=== PATIENT | female | born 1945 | race Caucasian/White ===

== ENCOUNTER 2016-06-03 06:23 | Emergency (ER) | payer MEDICARE, OTHER ==
[2016-06-03 06:32] VITALS: BP 195/82
--- NOTE | 2016-06-03 07:00 | ERNOTE ---
Upper Extremity HPI - General Extremities Pain Location: shoulder: right - fell Time Seen by Provider: 06/03/16 06:55 Source: patient, family Exam Limitations: no limitations - Immun/Allergies/Home Medications Immunizations: IMMUNIZATION HX Immunizations Up to Date No History of Influenza Vaccine No Hx Pneumococcal Vaccination Yes Allergies/Adverse Reactions: Allergies Allergy/AdvReac Type Severity Reaction Status Date / Time No Known Allergies Allergy Verified 06/03/16 06:33 Home Medications: HOME MEDICATIONS Aspirin 325 mg PO DAILY 02/09/16 [Last Taken Unknown] Atorvastatin Calcium 80 mg PO DAILY 02/09/16 [Last Taken Unknown] Carvedilol [Coreg] 25 mg PO BID 02/09/16 [Last Taken Unknown] Ezetimibe [Zetia] 10 mg PO DAILY 02/09/16 [Last Taken Unknown] Glimepiride [Amaryl] 4 mg PO DAILY 02/09/16 [Last Taken Unknown] Pramipexole Di-HCl [Mirapex] 1.5 mg PO BID 02/09/16 [Last Taken Unknown] Losartan Potassium [Cozaar] 100 mg PO DAILY 06/03/16 [Last Taken Unknown] Multivitamins [Multivitamin Yaron] 1 cap PO DAILY 06/03/16 [Last Taken Unknown] - History of Present Illness Narrative: Pt lost her balance due to Parkinson's and fell on her right side. Non- specific pain in right arm Occurred: just prior to arrival Location of Incident: home Severity: moderate Method of Injury: Reports: fell Reason for Fall: Reports: lost balance Loss of Consciousness: Reports: no loss of consciousness Associated Symptoms: Denies: tingling, weakness Other Injuries: Reports: none Review of Systems - Review of Systems Constitutional: Absent: recent illness Cardiology: Absent: chest pain Neurological: Absent: dizziness/light-headedness, weakness, numbness, tingling - Patient's Past Medical History Patient History - Medical: Cataracts, Diabetes Type 2, Other - Parkinson's Patient History - Cardiac/Respiratory: CVA/Stroke, Hypertension, Myocardial Infarction, Other Patient History - Cancer: No Hx of Cancer Patient History - Surgical Procedures: Cataracts, Tubal Ligation, Other Patient History - Other: None - Family History Mother Family History - Medical: , No pertinent hx Family History - Cardiac/Respiratory: Coronary Heart Disease, Hypertension, TIA Father Family History - Medical: , No pertinent hx Family History - Cardiac/Respiratory: Coronary Heart Disease - Social History Living Situations: other Abuse History: No History of abuse Psych History: Hx of Anxiety Alcohol Use: none Drug Use: none - Immunizations Immunizations Up to Date: No Hx Pneumococcal Vaccination: Yes History of Influenza Vaccine: No Physical Exam - Physical Exam General Appearance: Present: wd/wn, alert, no apparent distress Neck: Present: normal inspection, nontender, supple Respiratory: Present: no respiratory distress, no accessory muscle use Back Exam: Present: normal inspection, normal range of motion, no vertebral tenderness Extremity Exam: Present: other - Tenderness to the right bicepital tendon. Absent: joint redness, joint swelling Neurological Exam: Present: alert, oriented, normal mood/affect Skin Exam: Present: normal color, warm/dry ED Progress - Vital Signs Vital Signs: Vital Signs 06/03/16 06:29 Pulse Rate 72 Respiratory 20 Rate Blood Pressure 195/82 O2 Sat by Pulse 96 Oximetry - X-Ray X-Ray #1 X-Ray: shoulder Interpretation: Interp. by me X-ray Comments: No fracture or dislocation - Progress/Reassessment Chief Complaint: Shoulder Injury/Pain Departure Clinical Impression: Right shoulder strain Qualifiers: Encounter type: initial encounter Qualified Code(s): S46.911A - Strain of unspecified muscle, fascia and tendon at shoulder and upper arm level, right arm , initial encounter - Departure Disposition: Home self-care Condition: Good Instructions: RICE for Routine Care of Injuries, [id number] Additional Instructions: You may use ibuprofen three times a day for 7-10 days. Follow up with your regular doctor if not improving Referrals: Keysha Baptiste MD [Primary Care Provider] -
--- OUTSIDE RECORDS SUMMARY | 2016-06-03 07:23 | XMS REPORT | Continuity of Care Document ---
:1945 Author Organization [facility] Address [place] [address] Care Team Providers Name Role Phone Keysha Baptiste Primary Care Provider [phone] Source Comments This disclosure is being made pursuant to the [employer] program and maynot contain all information available regarding this patient.[facility] Active Allergies and Adverse Reactions No Known Allergies Current Medications Be aware that medications may not be up to date as of this document. Alwaysverify current medications with the patient. Prescription Sig. Disp. Refills Start Date End Date Status Multiple Vitamin Take by Active (MULTI-VITAMINS) mouth daily. TABS glimepiride Take 4 mg by Active (AMARYL) 4 MG mouth every tablet morning before breakfast. TRUETEST TEST test 2 (two) times 11 12/05/2014 Active strip daily. Test twice daily pramipexole TAKE 1 TABLET 270 tablet 7 05/22/2015 Active (MIRAPEX) 1.5 MG THREE TIMES tablet DAILY aspirin 325 MG Take 325 mg Active tablet by mouth daily. losartan (COZAAR) Take 1 tablet 90 tablet 2 05/27/2016 Active 100 MG tablet by mouth daily. furosemide (LASIX) Take 1 tablet 90 tablet 2 05/27/2016 Active 40 MG tablet by mouth daily. ezetimibe (ZETIA) Take 1 tablet 90 tablet 2 05/27/2016 Active 10 MG tablet by mouth daily. carvedilol (COREG) Take 1 tablet 180 tablet 2 05/27/2016 Active 25 MG tablet by mouth 2 (two) times daily. atorvastatin Take 1 tablet 90 tablet 2 05/27/2016 Active (LIPITOR) 80 MG by mouth tablet daily. ezetimibe (ZETIA) Take 1 tablet 90 tablet 2 04/19/2016 05/27/2016 Discontinued 10 MG tablet by mouth daily. atorvastatin Take 1 tablet 90 tablet 2 04/19/2016 05/27/2016 Discontinued (LIPITOR) 80 MG by mouth tablet daily. carvedilol (COREG) Take 1 tablet 180 tablet 2 04/19/2016 05/27/2016 Discontinued 25 MG tablet by mouth 2 (two) times daily. furosemide (LASIX) Take 1 tablet 90 tablet 2 04/19/2016 05/27/2016 Discontinued 40 MG tablet by mouth daily. losartan (COZAAR) Take 1 tablet 90 tablet 2 04/19/2016 05/27/2016 Discontinued 50 MG tablet by mouth daily. Active Problems Problem Noted Date Mitral and aortic valve regurgitation 05/27/2016 Leg edema 05/29/2015 Venous insufficiency (chronic) (peripheral) 05/29/2015 Type II diabetes mellitus, uncontrolled ([facility]) 11/06/2012 Overview: Overview: MARCK SCHAEFER MD Coronary atherosclerosis of artery bypass graft 05/04/2012 Overview: Overview: MARCK SCHAEFER MD Personal history of other diseases of circulatory system 09/09/2010 Overview: Overview: 2006-11 LATANYA SIBLEY MD Paralysis agitans ([facility]) 09/09/2010 Overview: Overview: very responsive to mirapex as they have a Parkinso LATANYA SIBLEY MD Convulsions ([facility]) 09/09/2010 Overview: Overview: By patient personal report. Inactive problem LATANYA SIBLEY MD Coronary atherosclerosis of [place] coronary artery 09/09/2010 Overview: Overview: MARCK SCHAEFER MD Family history of ischemic heart disease 09/09/2010 Overview: Overview: MARCK SCHAEFER MD Hypercholesterolemia 09/09/2010 Overview: Overview: MARCK SCHAEFER MD Essential hypertension 09/09/2010 Overview: Overview: MARCK SCHAEFER MD Most Recent Encounters Date Type Specialty Providers Description 05/27/2016 Office Visit Cardiology Marck Schaefer MD Mitral and aortic valve regurgitation (Primary Dx); Venous insufficiency (chronic) (peripheral); Hypercholesterolemia; Essential hypertension; Atherosclerosis of [place] coronary artery of [place] heartwithout angina pectoris; Atherosclerosis of coronary artery bypass graft of [place] heart without angina pectoris; Personal history of other diseases of circulatory system; Family history of ischemicheart disease; Bilateral edema of lower extremity 05/27/2016 Clinical Support Cardiology Marck Schaefer MD CAD in [place] artery Braden Sibley RT 04/19/2016 Refill Cardiology Xiomara Choudhury ethnographic materials conservator Refill 04/15/2016 Refill Cardiology CutNy meng, Medication Refill MESSAGE AND DELIVERY SERVICE PRICER 03/25/2016 Data Import 03/15/2016 Refill Cardiology Xiomara Choudhury ethnographic materials conservator Refill Social History Tobacco Use Types Packs/Day Years Used Date Never Smoker Smokeless Tobacco: Never Used Alcohol Use Drinks/Week oz/Week Comments No Alcoholic Drinks/day: ALCOHOL USE: NON-DRINKER Last Filed Vital Signs Vital Sign Reading Time Taken Blood Pressure 152/98 05/27/2016 11:45 AM RN RADIATION Pulse 54 05/27/2016 11:45 AM RN RADIATION Temperature - - Respiratory Rate - - Height 1.473 m (4' 10") 11/26/2015 3:45 PM CDT Weight 82.555 kg (182 lb) 05/27/2016 11:45 AM RN RADIATION Body Mass Index 38.05 05/27/2016 11:45 AM RN RADIATION Oxygen Saturation 98% 01/09/2015 12:47 PM CDT Plan of Care Patient Goal Type Goal Blood Pressure Blood Pressure below 140/90 Date Type Specialty Providers Description 02/02/2017 Appointment Cardiology Marck Schaefer MD [address] [place] [address] [place] [id number] [phone] (Fax) Health Maintenance Due Date Last Done Comments LAB-HgA1C 02/15/1948 Eye (Ophthalmology) Exam 1953 Foot Exam 1953 Lab-Urine Microalbumin 1953 Tetanus/Pertussis (1 - Tdap) 1962 Colonoscopy 1993 Mammogram 1993 Well Adult Visit 1993 Zoster Vaccine 60+ 2003 Bone Density 02/15/2008 Pneumococcal Low/Medium Risk 65+ (1 of 2 - PCV13) 02/15/2008 Influenza Immunization (#1) 2015 Results from Last 3 Months TTE (Transthoracic Echo) Complete (05/27/2016 10:59 AM) Narrative [facility] [place] [address] Echocardiographic Report Patient Name: KORINA CAVAZOS APatient ID: [id number] : 1945Study Date: 05/27/2016 10:59:06 AM Gender: FTech: TP Height(Cm): 147Weight(Kg): 77.1 Ref. Physician: MICHELLE SCHAEFERocation: LEIGHANNIQCARNicholas Quality: Good BSA: 1.77 Procedures: Echocardiographic Report: Transthoracic echocardiogram with complete 2D, M-Mode, color flow and Doppler examination. Indications: Coronary Artery Disease. Measurements: 2D/M Mode MeasurementValueNormal Range IVSd MM1.2[ 0.6 - 0.9 ] cm IVSs MM1.61 [ 1.00 - 5.00 ] cm LVIDd MM 5.5[ 3.9 - 5.3 ] cm LVIDs MM 4.0[ 2.3 - 3.9 ] cm LVPWd MM 0.8[ 0.6 - 1.0 ] cm LVPWs MM 1.1[ 1.0 - 5.0 ] cm AoR Diam MM3.50 [ 2.60 - 3.70 ] cm LA Dimen MM4.4[ 2.7 - 3.8 ] cm LA/Ao MM 1.26 ratio ACS MM 1.7cm EDV MM 147.0[ 56.0 - 104.0 ] ml ESV MM 63.9 [ 19.0 - 49.0 ] ml SV MM83.1 cm3 LV FS MM 30.0 [ 27.0 - 45.0 ] percent EF MM56.5 [ 55.0 - 70.0 ] percent LA Qwuewl67.5 [ 22.0 - 52.0 ] ml MV PHT 0.3 PV Peak Njl014.0[ 40.0 - 80.0 ] cm/sec PV Peak PG 4.0mmHg Doppler MeasurementValueNormal Range AV Mean PG 5.0[ 2.0 - 4.0 ] mmHg AV Peak Vfq360.0[ 100.0 - 170.0 ] cm/sec AV Peak PG 9.0[ 2.0 - 9.0 ] mmHg CARMEN VTI1.9[ 2.0 - 4.0 ] cm2 AV VTI 38.6 cm LVOT Diam2.0[ 1.7 - 2.1 ] cm LVOT Bybl3151.6 LVOT Mean Vel54.8 [ 60.0 - 80.0 ] cm/sec LVOT Mean PG 1.0[ 1.0 - 3.0 ] mmHg LVOT Peak Vel84.2 [ 70.0 - 110.0 ] cm/sec LVOT Peak PG 3.0[ 2.0 - 6.0 ] mmHg LVOT VTI 22.9 [ 20.0 - 30.0 ] cm MV E Peak Duv752.0[ 60.0 - 130.0 ] cm/sec MV A Peak Qfy697.0[ 100.0 - 120.0 ] cm/sec MV E/A 1.1[ 0.8 - 1.5 ] ratio MV Decel Qxjn217.0[ 104.0 - 258.0 ] msec Findings: Left Ventricle: Normal left ventricular systolic function. Ejection fraction is estimated at 50-55 %. Wall thickness is increased consistent with mild concentric left ventricular hypertrophy. Abnormal (paradoxical) septal motion consistent with postoperative status. Diastolic Function: Grade II left ventricular diastolic dysfunction. Right Ventricle: Normal right ventricular size. Normal right ventricular function. Left Atrium: The left atrium is normal in size. Right Atrium: The right atrium is normal in size. RA Pressure is 3. Mitral Valve: Mild mitral annular calcification. Mild to moderate mitral valve regurgitation. Aortic Valve: The calculated CARMEN is 1.90 cm2. Aortic cusps appear mildly calcified. Mild aortic stenosis. Mild to moderate aortic valve regurgitation. Tricuspid Valve: There is trivial tricuspid regurgitation. Pulmonic Valve: There is trace pulmonic regurgitation. Pericardium: Normal pericardium with no significant pericardial effusion or masses seen. Aorta: Ascending aorta is mildly dilated. There is mild aortic root dilation. Conclusions: Normal left ventricular systolic function. Ejection fraction is estimated at 50-55 %. Wall thickness is increased consistent with mild concentric left ventricular hypertrophy. Abnormal (paradoxical) septal motion consistent with postoperative status. s. Grade II left ventricular diastolic dysfunction. The left atrium is normal in size. Mild mitral annular calcification. Mild to moderate mitral valve regurgitation. The calculated CARMEN is 1.90 cm2. Aortic cusps appear mildly calcified. Mild aortic stenosis. Mild to moderate aortic valve regurgitation. There is trivial tricuspid regurgitation. There is trace pulmonic regurgitation. Normal pericardium with no significant pericardial effusion or masses seen. Ascending aorta is mildly dilated. There is mild aortic root dilation. Electronically Signed By: Dr. Marck Schaefer MD, [facility], [facility] 2016-05-27 12:21:41-0600 CC: CC: Procedure Note Juan, External Ris In - Meghana May 27, 2016 12:22 [place] [address] Echocardiographic Report Patient Name: KORINA CAVAZOSAPatient ID: [id number] : 1945Study Date: 05/27/2016 10:59:06 AM Gender: Bartolo: JUAN JOSE Height(Cm): 147Weight(Kg): 77.1 Ref. Physician: MICHELLE SCHAEFERocation: KIARA Quality: Good BSA: 1.77 Procedures: Echocardiographic Report: Transthoracic echocardiogram with complete 2D, M-Mode, color flow and Doppler examination. Indications: Coronary Artery Disease. Measurements: 2D/M Mode Measurement Value Normal Range IVSd MM 1.2 [ 0.6 - 0.9 ] cm IVSs MM 1.61 [ 1.00 - 5.00 ] cm LVIDd MM 5.5 [ 3.9 - 5.3 ] cm LVIDs MM 4.0 [ 2.3 - 3.9 ] cm LVPWd MM 0.8 [ 0.6 - 1.0 ] cm LVPWs MM 1.1 [ 1.0 - 5.0 ] cm AoR Diam MM 3.50 [ 2.60 - 3.70 ] cm LA Dimen MM 4.4 [ 2.7 - 3.8 ] cm LA/Ao MM 1.26 ratio ACS MM 1.7 cm EDV MM 147.0 [ 56.0 - 104.0 ] ml ESV MM 63.9 [ 19.0 - 49.0 ] ml SV MM 83.1 cm3 LV FS MM 30.0 [ 27.0 - 45.0 ] percent EF MM 56.5 [ 55.0 - 70.0 ] percent LA Volume 70.5 [ 22.0 - 52.0 ] ml MV PHT 0.3 PV Peak Isaac 103.0 [ 40.0 - 80.0 ] cm/sec PV Peak PG 4.0 mmHg Doppler Measurement Value Normal Range AV Mean PG 5.0 [ 2.0 - 4.0 ] mmHg AV Peak Isaac 152.0 [ 100.0 - 170.0 ] cm/sec AV Peak PG 9.0 [ 2.0 - 9.0 ] mmHg CARMEN VTI 1.9 [ 2.0 - 4.0 ] cm2 AV VTI 38.6 cm LVOT Diam 2.0 [ 1.7 - 2.1 ] cm LVOT Area 1169.6 LVOT Mean Isaac 54.8 [ 60.0 - 80.0 ] cm/sec LVOT Mean PG 1.0 [ 1.0 - 3.0 ] mmHg LVOT Peak Isaac 84.2 [ 70.0 - 110.0 ] cm/sec LVOT Peak PG 3.0 [ 2.0 - 6.0 ] mmHg LVOT VTI 22.9 [ 20.0 - 30.0 ] cm MV E Peak Isaac 115.0 [ 60.0 - 130.0 ] cm/sec MV A Peak Isaac 107.0 [ 100.0 - 120.0 ] cm/sec MV E/A 1.1 [ 0.8 - 1.5 ] ratio MV Decel Time 236.0 [ 104.0 - 258.0 ] msec Findings: Left Ventricle: Normal left ventricular systolic function. Ejection fraction is estimated at 50-55 %. Wall thickness is increased consistent with mild concentric left ventricular hypertrophy. Abnormal (paradoxical) septal motion consistent with postoperative status. Diastolic Function: Grade II left ventricular diastolic dysfunction. Right Ventricle: Normal right ventricular size. Normal right ventricular function. Left Atrium: The left atrium is normal in size. Right Atrium: The right atrium is normal in size. RA Pressure is 3. Mitral Valve: Mild mitral annular calcification. Mild to moderate mitral valve regurgitation. Aortic Valve: The calculated CARMEN is 1.90 cm2. Aortic cusps appear mildly calcified. Mild aortic stenosis. Mild to moderate aortic valve regurgitation. Tricuspid Valve: There is trivial tricuspid regurgitation. Pulmonic Valve: There is trace pulmonic regurgitation. Pericardium: Normal pericardium with no significant pericardial effusion or masses seen. Aorta: Ascending aorta is mildly dilated. There is mild aortic root dilation. Conclusions: Normal left ventricular systolic function. Ejection fraction is estimated at 50-55 %. Wall thickness is increased consistent with mild concentric left ventricular hypertrophy. Abnormal (paradoxical) septal motion consistent with postoperative status. s. Grade II left ventricular diastolic dysfunction. The left atrium is normal in size. Mild mitral annular calcification. Mild to moderate mitral valve regurgitation. The calculated CARMEN is 1.90 cm2. Aortic cusps appear mildly calcified. Mild aortic stenosis. Mild to moderate aortic valve regurgitation. There is trivial tricuspid regurgitation. There is trace pulmonic regurgitation. Normal pericardium with no significant pericardial effusion or masses seen. Ascending aorta is mildly dilated. There is mild aortic root dilation. Electronically Signed By: Dr. Marck Schaefer MD, [facility], [facility] 2016-05-27 12:21:41-0600 CC: CC:
== END 2016-06-03 07:19 | disposition home or self-care (01) ==
LOC: ER 06:23
DX: S46.911A Strain of unspecified muscle, fascia and tendon at shoulder and upper arm level, right arm, initial encounter (principal); W18.39XA Other fall on same level, initial encounter; Z91.81 History of falling; Y92.009 Unspecified place in unspecified non-institutional (private) residence as the place of occurrence of the external cause; I10 Essential (primary) hypertension; G20 Parkinson's disease; E11.9 Type 2 diabetes mellitus without complications